=== PATIENT | female | born 1955 | race African-American/Black ===

== ENCOUNTER 2017-08-21 16:13 | Inpatient (IN) | payer MEDICARE, OTHER ==
[2017-08-21] MEDS ORDERED: hydrALAZINE 20 MG/ML VIAL ONE (18:21)
[2017-08-21 18:42] LABS: Bilirubin Negative (Negative); Blood, Urine Negative (Negative); Clarity CLEAR (Clear); Glucose, Urine (Dipstick) >=1000 mg/dL (Negative); Leukocyte Negative (Negative); Nitrite Negative (Negative); Protein, Urine (Dipstick) Trace mg/dL (Neg-Trace); Specific Gravity, Urine 1.026 (1.002-1.036); Urobilinogen 0.2 mg/dL (0.2-1.0)
[2017-08-21] MEDS ORDERED: Ondansetron HCl/PF 4 MG/2 ML Vial IVP PRN (19:03)
[2017-08-21] MEDS ORDERED: Labetalol HCl 100 MG/20 ML VIAL SLOW IVP PRN (19:03)
[2017-08-21] MEDS ORDERED: hydrALAZINE 20 MG/ML VIAL SLOW IVP PRN (19:03)
[2017-08-21 19:37] LABS: Hemoglobin A1c 15.2 % (4.0-6.0)
[2017-08-21] MEDS ORDERED: Dextrose 50% Abboject 50 ML SYRINGE SLOW IVP PRN (19:52)
[2017-08-21] MEDS ORDERED: Dextrose 5% in Water 1,000 ML IV PRN (19:52)
[2017-08-21 20:35] VITALS: BMI 26.6
[2017-08-21] MEDS: Sodium Chloride 0.9% 1,000 ML IV SCH (21:05)
[2017-08-21] MEDS: Atorvastatin Calcium 40 MG TAB PO SCH (21:06)
[2017-08-21] MEDS: Acetaminophen 325 MG TAB PO PRN (21:06)
[2017-08-21] MEDS: Famotidine 20 MG TAB PO SCH (21:07)
[2017-08-21] MEDS: Labetalol HCl 100 MG/20 ML VIAL SLOW IVP PRN (21:07)
[2017-08-22 05:41] LABS: Cardiac Risk 4.2 (Less than 4.5)
[2017-08-22] MEDS: Insulin Regular 300 UNITS/3 ML VIAL SC PRN ×4 (06:07→23:19)
[2017-08-22] MEDS: Sodium Chloride 0.9% 1,000 ML IV SCH ×2 (06:47→08:30)
[2017-08-22] MEDS: Famotidine 20 MG TAB PO SCH ×2 (08:30→21:57)
[2017-08-22] MEDS: Aspirin 81 mg Enteric Coated Tablet PO SCH (08:30)
[2017-08-22] MEDS: Enoxaparin Sodium 30 MG/0.3 ML SYRINGE SC SCH (08:31)
[2017-08-22] MEDS ORDERED: Prevnar 13-Val Conj/PF 0.5 ML SYRINGE IM ONE (09:00)
[2017-08-22] MEDS: hydrALAZINE 20 MG/ML VIAL SLOW IVP PRN (10:43)
[2017-08-22] MEDS: Acetaminophen 325 MG TAB PO PRN ×2 (10:44→23:19)
--- NOTE | 2017-08-22 11:25 | PDOC.PN ---
- Subjective Encounter Start Date: 08/22/17 Encounter Start Time: 11:22 Subjective: nsg notes rev, hellen ovn, no new c/o, feels a bit nauseated, still feels -: dizzy with any movement. - Objective Resuscitation Status: Resuscitation Status FULL:Full Resuscitation Vital Signs & Weight: Vital Signs (12 hours) Temp Pulse Resp BP Pulse Ox 08/22/17 10:43 81 08/22/17 07:54 98.8 F 81 12 184/102 H 98 08/22/17 03:33 98.3 F 81 16 155/74 H 98 08/21/17 23:31 98.4 F 88 16 183/94 H 98 Weight Weight 170 lb 9 oz I&O: 08/21/17 08/22/17 08/23/17 06:59 06:59 06:59 Intake Total 1140 240 Balance 1140 240 Additional Labs: Accuchecks 08/22/17 08/22/17 05:39 01:09 POC Glucose 245 H 315 H Phys Exam - Physical Examination Constitutional: NAD lying in hospital bed HEENT: sclera anicteric, oral pharynx no lesions slightly dry mm Respiratory: no wheezing, no rales, no rhonchi, clear to auscultation bilateral Cardiovascular: RRR, no rub [place] best heard RSB Gastrointestinal: soft, no distention, positive bowel sounds Musculoskeletal: no edema, pulses present Neurological: moves all 4 limbs Psychiatric: normal affect, A&O x 3 Dx/Plan - Plan * dizziness * concern for central etiology of vertigo * pending MRI * apprec neuro c/s * asa medication noncompliance with uncontrolled HTN, DM hypertension * in acute setting, prn hydralazine, labetalol, monitor closely * will need outpatient antihypertensive regimen - start HCTZ, RONA DM2, uncontrolled * A1c of 15.2 * will need insulin on outpatient basis * SSI for now, determine 24 hr need prior/ old lacunar stroke * discussed finding with patient * places her at increased risk for future risk * check ECHO 2/2 presence of murmur as well nausea * likely related to dizziness * symptomatic and supportive mgmt diet: cardiac, diabetic activity: PT dvt ppx Review of Systems - Medications/Allergies Allergies/Adverse Reactions: Allergies Allergy/AdvReac Type Severity Reaction Status Date / Time clindamycin Allergy Verified 08/21/17 20:41 Medications: Current Medications Acetaminophen (Tylenol) 650 mg PO Q4H PRN PRN Reason: Headache/Fever or Pain Last Admin: 08/22/17 10:44 Dose: 650 mg Aspirin (Ecotrin) 81 mg PO DAILY [facility] Last Admin: 08/22/17 08:30 Dose: 81 mg Atorvastatin Calcium (Lipitor) 40 mg PO HS [facility] Last Admin: 08/21/17 21:06 Dose: 40 mg Dextrose/Water (Dextrose 50%) 25 gm SLOW IVP PRN PRN PRN Reason: Hypoglycemia Enoxaparin Sodium (Lovenox) 30 mg SC 0900 [facility] Last Admin: 08/22/17 08:31 Dose: 30 mg Famotidine (Pepcid) 20 mg PO BID [facility] Last Admin: 08/22/17 08:30 Dose: 20 mg Glucagon (Glucagon) 1 mg IM PRN PRN PRN Reason: Hypoglycemia Hydralazine HCl (Apresoline) 10 mg SLOW IVP Q4H PRN PRN Reason: Hypertension Last Admin: 08/22/17 10:43 Dose: 10 mg Sodium Chloride (Normal Saline 0.9%) 1,000 mls @ 100 mls/hr IV .Q10H [facility] Last Admin: 08/22/17 08:30 Dose: 1,000 mls Dextrose/Water (D5w) 1,000 mls @ 0 mls/hr IV .Q0M PRN; As Directed PRN Reason: Hypoglycemia Insulin Human Regular (Humulin R) 0 units SC .MODERATE SLIDING SC PRN PRN Reason: Moderate Correctional Scale Last Admin: 08/22/17 06:07 Dose: 4 unit Labetalol HCl (Normodyne) 20 mg SLOW IVP Q1H PRN PRN Reason: Hypertension Last Admin: 08/21/17 21:07 Dose: 20 mg Ondansetron HCl (Zofran) 4 mg IVP Q6H PRN PRN Reason: Nausea/Vomiting Last Admin: 08/22/17 10:43 Dose: 4 mg
[2017-08-22 11:32] LABS: #Eosinphils 0.2 thou/uL (0.0-0.7); #Monocytes 0.4 thou/uL (0.11-0.59); #Neutrophils 3.9 thou/uL (1.40-6.50); %Basophils 0.7 % (0.0-1.0); %Eosinophils 2.9 % (0.0-10.0); %Lymphocytes 17.8 % (21.0-51.0); %Monocytes 7.2 % (0.0-10.0); %Neutrophils 71.4 % (42.0-75.0); Hemoglobin 13.6 g/dL (12.0-16.0); Mean Corpuscular HGB CONC 35.7 g/dL (32.0-36.0); Mean Corpuscular Hemoglobin 28.9 pg (27.0-31.0); Mean Platelet Volume 7.9 fL (7.4-10.4); Platelet Count 238 thou/uL (130-400); RBC Distribution Width 13.2 % (11.5-14.5); Red Blood Cell (RBC) Count 4.72 mill/uL (4.20-5.40); White Blood Cell (WBC) Count 5.5 thou/uL (4.8-10.8)
[2017-08-22 11:57] LABS: Anion Gap 10 mmol/L (10-20); BUN (Urea Nitrogen) 7 mg/dL (9.8-20.1); Calc. Creatinine Clearance 83 mL/min (70-130); Calcium 8.9 mg/dL (7.8-10.44); Carbon Dioxide 28 mmol/L (23-31); Chloride 101 mmol/L (98-107); Estimated GFR-MDRD 81; Glucose 333 mg/dL (80-115); Potassium 3.2 mmol/L (3.5-5.1); Sodium 136 mmol/L (136-145)
--- NOTE | 2017-08-22 12:39 | HP ---
PRIMARY CARE PHYSICIAN: The patient has no PCP. CHIEF COMPLAINT: Dizziness. HISTORY OF PRESENT ILLNESS: This is a 61-year-old female with a history of hypertension, medication noncompliance, diabetes, who presents with acute onset of dizziness and feeling that everything is spinning around her. The patient does not recall exactly what she was doing when this happened, but states that it happened 2 days ago and denies any prior similar episodes. She is accompanied today by her sister at bedside. Patient denies any recent illnesses. Denies any headaches. Endorses some blurred vision associated with the dizziness. REVIEW OF SYSTEMS: As per HPI. Constitutional: No recent weight changes, gain or loss. Denies any recent fevers or chills. HEENT: No headaches, some blurry vision as noted above, accompanied by the dizziness as described above. This is more of a sensation that the room is spinning around her and that it is worse when she moves, better when she stays still. Cardiovascular: Denies any chest pain or chest pressure, left-sided arm numbness or tingling. Respiratory: Denies any accompanying shortness of breath, dyspnea with exertion , cough or recent upper respiratory infection. Gastrointestinal: Denies any nausea, denies any vomiting, although endorses that she has lost her appetite over the last 2 days with this ongoing and reports a normal bowel movement yesterday, described as brown. Denies any issues with constipation or diarrhea over the last week. Genitourinary: Denies any issues with dysuria, changes in urinary frequency, quality or quantity. Musculoskeletal: Denies any new myalgias or arthralgias. PAST MEDICAL HISTORY: As per HPI, significant for, 1. Hypertension. 2. Diabetes. 3. Medication noncompliance. The patient states that she has not been taking her medications for several months, she is unable to give me a reason at this point in time. SURGERIES: None. HOME MEDICATIONS: None as noted above. No [id number], no supplements, no herbal regimens. ALLERGIES: CLINDAMYCIN, unknown reaction. FAMILY HISTORY: Significant for heart disease, hypertension, and diabetes. No known family history of stroke. SOCIAL HISTORY: The patient is accompanied by her sister with her today at bedside. The patient denies any alcohol, tobacco or illicit drug use. The patient has requested to be full code at this point in time. PHYSICAL EXAMINATION: GENERAL: The patient is awake, alert, oriented x3. HEENT: Normocephalic, atraumatic. Pupils are equal, reactive. Eyelids appear to have a baseline tremorous appearance, but she is able to open and close on command without difficulty. Equal ocular motions are intact, but she does appear to have lateral beating or saccadic like movements. CARDIOVASCULAR: S1, S2. No murmurs, rubs or gallops. EXTREMITIES: Pulses 2+ bilateral upper extremities, no pitting pedal edema. RESPIRATORY: Reasonable air movement. No conversational dyspnea. No wheezes, rales or rhonchi. ABDOMEN: Positive bowel sounds, soft, nontender to palpation. NEUROLOGIC: Moving all 4 extremities independently. LABORATORY DATA: WBC 5.6, hemoglobin 15.0, hematocrit 42.8, platelets 245. Sodium 137, potassium 3.8, chloride 97, BUN 9, creatinine 1.18, glucose 391, total bilirubin 0.5, AST 12, ALT 11, alkaline phosphatase 116, total protein 7.2 , albumin 4.2. Troponin 0.023. UA is significant for 500 of glucose and trace blood, otherwise bland. X-RAY FINDINGS: On 08/21/2017, brain CT, impression "no acute intracranial findings, tiny old lacunar infarctions in the left caudate nucleus and at the genu of the left internal capsule." ASSESSMENT AND PLAN: A 61-year-old female presenting with a chief complaint of dizziness. 1: Dizziness. More accurately described as perhaps a vertiginous type symptoms. New concern for the possibility of a central versus peripheral etiology. CT of the head in the ER has been grossly negative. Given the patient's prior history of old strokes which is not known to her, she certainly is at risk for a new central vertigo. Symptomatic management, physical therapy consultation.Obtain MRI, consult neurology. 2. Hypertension, poorly controlled. Close monitoring. P.r.n. hydralazine and labetalol with initiation of a new antihypertensive regimen at the time of discharge. 3. Uncontrolled diabetes. We will initiate sliding scale insulin. Unclear what the patient's baseline is, check a hemoglobin A1c. 4. Medication noncompliance. Discussed with the patient and she is willing to follow up after discharge from this facility. Thank you for asking me to care for the patient and admit the patient to the stroke unit under observation status. ELIZABETH
--- NOTE | 2017-08-22 13:35 | ULT ---
CAROTID DOPPLER: DATE: 08/22/17. PROVIDED CLINICAL HISTORY: Evidence for stroke. FINDINGS: There is no evidence for a hemodynamically significant internal carotid artery stenosis by peak systo lic velocity or ratio criteria. Antegrade flow is seen in the vertebral arteries. IMPRESSION: No sonographic evidence for a hemodynamically significant internal carotid artery stenosis. POS: VALENTE
--- NOTE | 2017-08-22 14:53 | CON ---
DATE OF CONSULTATION: 08/22/2017 CONSULTING PHYSICIAN: Hospitalist Service. IMPRESSION: 1. 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 2. Diabetes. 3. Hypertension. PLAN: 1. Aspirin daily. 2. Carotid ultrasound. 3. Echocardiogram. 4. MRI of the brain. HISTORY OF PRESENT ILLNESS: Ms. Weber is a 61-year-old black female, who has known history of hyper tension and diabetes. She presents with complaints of vision loss that started on Thursday. She di d not seek medical attention right away. She reports that she has more difficulty seeing to the left than compared to the right. She also has some associated dizziness and nausea. She has not noticed any lateralized weakness or numbness of the extremities. She had difficulty walking secondary to th dizziness. She came into the emergency room yesterday and we workup thus far has been some blood w orks, which showed some hyperglycemia. She is also noted to be hypertensive on exam. She denies a h istory of prior stroke. PAST MEDICAL HISTORY: As listed above. ALLERGIES: CLINDAMYCIN. SOCIAL HISTORY: No tobacco or alcohol use reported. FAMILY HISTORY: Noncontributory. REVIEW OF SYSTEMS: Negative for headache, chest pain, or shortness of breath. PHYSICAL EXAMINATION: GENERAL: She is a well-nourished, middle-aged woman in no distress. VITAL SIGNS: Blood pressure 184/102, pulse 81, respirations 12, and temperature 98.8. HEENT: Pupils are equal in size. Conjunctivae clear. Oropharynx clear. Cranium, normocephalic and atraumatic. NECK: Supple. EXTREMITIES: No cyanosis, clubbing, or edema. NEUROLOGIC: She was alert and cooperative. Her speech was fluent and clear. Cranial nerve exam sergio wed what appeared to be a left homonomous hemianopsia. Eye movements were impaired as far as the rig ht eye could not nasally deviate. There is some down beating nystagmus present. MOTOR: Exam showed good strength bilaterally, but there was a fix on arm roll testing on the right. Sensation was subjectively equal. Plantar response was upgoing on the right and equivocal on the le ft. Gait was not tested. SUMMARY: Given the combination of vision loss and ophthalmoplegia suspect that she has had a basilar ischemic event can proceed with her stroke workup and hopefully her symptoms will cherie somewhat wit h a bit of time.
--- NOTE | 2017-08-22 15:22 | MRI ---
MRI BRAIN NONCONTRAST: DATE: 08/22/17. HISTORY: A 61-year-old female with nausea and left-sided weakness. TIA. FINDINGS: The ventricles are normal in size and configuration. There is no midline shift or any other mass eff ect, recent intraaxial hemorrhage, or extraaxial fluid collection. There is a moderate degree of T2- hyperintensities in the cerebral white matter consistent with chronic ischemic white matter changes d ue to microvascular atherosclerosis. At the upper aspect of the natalia, near the pontomesencephalic ju nction, there are 2 small patchy foci of subtle, mild hyperintensity on T2WI and FLAIR, which have re stricted diffusion. The smaller one is located centrally at midline, a few millimeters in size. The other one is right posterior paracentral, measuring approximately 0.8 x 0.2 cm. There is a very small focus of T2 hyperintensity at the left caudate nucleus, with mild hemosiderin s tain. There is another small focus of T2-hyperintensity (without hemosiderin stain) and at the adjace nt anterior superior border of the thalamus. IMPRESSION: 1. Two tiny acute or subacute lacunar infarctions in the brainstem, more specifically at the upper p ons. 2. Small old lacunar infarction at left anterior medial thalamus. 3. Tiny old lacunar infarction with previous hemorrhagic conversion, versus old primary hemorrhage, at the left caudate nucleus. 4. Moderate chronic ischemic white matter changes. 5. No acute hemorrhage or mass effect. jnR POS: VALENTE
--- NOTE | 2017-08-22 15:34 | MRI ---
MAGNETIC RESONANCE ANGIOGRAM OF HEAD NONCONTRAST: (MRA) DATE: 08/22/17. HISTORY: A 61-year-old female with severe nausea and left-sided weakness. Rule out CVA. TECHNIQUE: Three-D [id number] MRA acquired in multiple axial slabs through the [place]. Source ivania ges and 3D MIP reconstructions evaluated. FINDINGS: There are several foci of apparent short segment stenoses involving the proximal aspects of the bilat eral posterior cerebral arteries and superior cerebellar arteries. The basilar artery and the intracranial bilateral vertebral arteries demonstrate no high-grade acquir ed stenosis. The A1 segment of the left anterior cerebral artery is diminutive. No high-grade short -segment acquired stenosis is identified in the anterior circulation. There is an anterior communica ting artery. No aneurysm greater than 3 mm is identified. IMPRESSION: 1. 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 2. No other high-grade focal acquired stenosis identified. POS: VALENTE
[2017-08-22] MEDS ORDERED: Potassium Chloride 20 MEQ TAB PO SCH (21:00)
[2017-08-22] MEDS: Atorvastatin Calcium 40 MG TAB PO SCH (21:58)
[2017-08-22] MEDS: Labetalol HCl 100 MG/20 ML VIAL SLOW IVP PRN (23:20)
[2017-08-23] MEDS ORDERED: Ondansetron ODT 4 MG TAB PO PRN (02:18)
[2017-08-23] MEDS: Insulin Regular 300 UNITS/3 ML VIAL SC PRN ×4 (06:38→21:07)
[2017-08-23] MEDS: Aspirin 81 mg Enteric Coated Tablet PO SCH (10:01)
[2017-08-23] MEDS: Enoxaparin Sodium 30 MG/0.3 ML SYRINGE SC SCH (10:01)
[2017-08-23] MEDS: Famotidine 20 MG TAB PO SCH ×2 (10:01→21:07)
[2017-08-23] MEDS: Lisinopril 20 MG TAB PO SCH (10:02)
--- NOTE | 2017-08-23 10:32 | PDOC.PN ---
- Subjective Encounter Start Date: 08/23/17 Encounter Start Time: 10:31 cc: dizziness sub: Pt still c/o dizziness - Objective Resuscitation Status: Resuscitation Status FULL:Full Resuscitation Vital Signs & Weight: Vital Signs (12 hours) Temp Pulse Resp BP BP BP BP 08/23/17 10:02 161/78 H 08/23/17 08:00 98.7 F 86 18 161/78 H 08/23/17 04:00 98.3 F 93 16 138/79 08/22/17 23:20 93 08/22/17 23:13 98.8 F 93 16 201/107 H 203/111 H 204/101 H Pulse Ox 08/23/17 10:02 08/23/17 08:00 98 08/23/17 04:00 98 08/22/17 23:20 08/22/17 23:13 97 Weight Weight 170 lb 9 oz I&O: 08/22/17 08/23/17 08/24/17 06:59 06:59 06:59 Intake Total 1140 2535 240 Balance 1140 2535 240 Result Diagrams: 08/22/17 11:24 08/22/17 11:24 Additional Labs: Accuchecks 08/23/17 08/22/17 08/22/17 06:03 20:39 16:10 POC Glucose 262 H 272 H 227 H 08/22/17 11:02 POC Glucose 351 H Dx/Plan - Plan Physical Examination Constitutional: NAD, lying on bed HEENT: sclera anicteric, oral pharynx no lesions slightly dry mm Respiratory: no wheezing, no rales, no rhonchi, clear to auscultation bilateral Cardiovascular: RRR, no rub [place] best heard RSB Gastrointestinal: soft, no distention, positive bowel sounds Musculoskeletal: no edema, pulses present Neurological: moves all 4 limbs, cn intact, follows commands Psychiatric: normal affect, A&O x 3 Dx/Plan - Plan * dizziness + ACute /subacute CVA * mri positive for stroke * apprec neuro c/s * asa medication noncompliance with uncontrolled HTN, DM hypertension * in acute setting, prn hydralazine, labetalol, monitor closely * will need outpatient antihypertensive regimen - start HCTZ, RONA DM2, uncontrolled * A1c of 15.2 * will need insulin on outpatient basis * SSI for now, determine 24 hr need prior/ old lacunar stroke * discussed finding with patient * places her at increased risk for future risk * check ECHO 2/2 presence of murmur as well nausea * likely related to dizziness * symptomatic and supportive mgmt diet: cardiac, diabetic activity: PT dvt ppx Dispo: might need rehab. will get PT/OT/ST eval
[2017-08-23] MEDS: Atorvastatin Calcium 40 MG TAB PO SCH (21:07)
[2017-08-24] MEDS: Insulin Regular 300 UNITS/3 ML VIAL SC PRN ×3 (06:09→17:19)
[2017-08-24] MEDS: Enoxaparin Sodium 30 MG/0.3 ML SYRINGE SC SCH (08:25)
[2017-08-24] MEDS: Aspirin 81 mg Enteric Coated Tablet PO SCH (08:26)
[2017-08-24] MEDS: Famotidine 20 MG TAB PO SCH ×2 (08:26→20:57)
[2017-08-24] MEDS: Lisinopril 20 MG TAB PO SCH (08:26)
[2017-08-24] MEDS: hydrALAZINE 20 MG/ML VIAL SLOW IVP PRN (12:05)
[2017-08-24 14:51] LABS: Albumin 3.7 g/dL (3.4-4.8); Anion Gap 14 mmol/L (10-20); BUN (Urea Nitrogen) 12 mg/dL (9.8-20.1); BUN/Creatinine Ratio 11.88; Calc. Creatinine Clearance 71 mL/min (70-130); Calcium 9.4 mg/dL (7.8-10.44); Carbon Dioxide 23 mmol/L (23-31); Chloride 103 mmol/L (98-107); Estimated GFR-MDRD 67; Glucose 230 mg/dL (80-115); Phosphorus 3.2 mg/dL (2.3-4.7); Potassium 3.4 mmol/L (3.5-5.1); Sodium 137 mmol/L (136-145)
[2017-08-24] MEDS ORDERED: Insulin Regular 300 UNITS/3 ML VIAL SC PRN (17:05)
[2017-08-24] MEDS: Atorvastatin Calcium 40 MG TAB PO SCH (20:57)
[2017-08-24] MEDS ORDERED: Insulin Detemir 100 UNITS/ML 15 UNITS in Pre-Filled Syringe 1 EACH SC SCH (21:00)
--- NOTE | 2017-08-24 22:15 | PDOC.PN ---
- Subjective Encounter Start Date: 08/24/17 Encounter Start Time: 17:00 Patient seen and examined for Acute CVA/Uncontrolled DM2. No new complaints. No overnight events. No new focal deficits. - Objective Resuscitation Status: Resuscitation Status FULL:Full Resuscitation MAR Reviewed: Yes Vital Signs & Weight: Vital Signs (12 hours) Temp Pulse Resp BP Pulse Ox 08/24/17 19:41 98.6 F 85 14 177/90 H 96 08/24/17 17:00 172/91 H 08/24/17 15:46 98.6 F 94 16 185/100 H 95 08/24/17 12:05 82 08/24/17 11:52 98.4 F 82 16 180/93 H 98 Weight Weight 170 lb 9 oz I&O: 08/23/17 08/24/17 08/25/17 06:59 06:59 06:59 Intake Total 2535 1490 1290 Balance 2535 1490 1290 Result Diagrams: 08/22/17 11:24 08/25/17 05:31 Additional Labs: Accuchecks 08/24/17 08/24/17 08/24/17 20:51 16:48 10:40 POC Glucose 227 H 368 H 285 H 08/24/17 08/23/17 06:09 21:08 POC Glucose 171 H 222 H EKG Reviewed by me: Yes (Tele SR) Phys Exam - Physical Examination Constitutional: NAD Respiratory: no wheezing, no rhonchi Cardiovascular: RRR, no rub Gastrointestinal: soft, non-tender, positive bowel sounds Musculoskeletal: no edema Neuro - no new focal deficits. Psychiatric: A&O x 3 Dx/Plan - Plan DVT proph w/lovenox, DVT proph w/SCDs IMPRESSION: 1. Acute CVA 2. DM2 - uncontrolled 3. Med noncompliace 4. Hypokalemia 5. Dyslipidemia PLAN: * Replace Potassium * Cont ASA/Statins * Add Levemir HS * Cont sliding scale * Check Potassium in AM Review of Systems - Review of Systems Respiratory: negative: Cough, Dry, Shortness of Breath, Hemoptysis, SOB with Excertion, Pleuritic Pain, Sputum, Wheezing Cardiovascular: negative: chest pain, palpitations, orthopnea, paroxysmal nocturnal dyspnea, edema, light headedness, other - Medications/Allergies Allergies/Adverse Reactions: Allergies Allergy/AdvReac Type Severity Reaction Status Date / Time clindamycin Allergy Verified 08/21/17 20:41 Medications: Current Medications Acetaminophen (Tylenol) 650 mg PO Q4H PRN PRN Reason: Headache/Fever or Pain Last Admin: 08/22/17 23:19 Dose: 650 mg Aspirin (Ecotrin) 81 mg PO DAILY [facility] Last Admin: 08/24/17 08:26 Dose: 81 mg Atorvastatin Calcium (Lipitor) 40 mg PO HS [facility] Last Admin: 08/24/17 20:57 Dose: 40 mg Dextrose/Water (Dextrose 50%) 25 gm SLOW IVP PRN PRN PRN Reason: Hypoglycemia Enoxaparin Sodium (Lovenox) 30 mg SC 0900 [facility] Last Admin: 08/24/17 08:25 Dose: 30 mg Famotidine (Pepcid) 20 mg PO BID [facility] Last Admin: 08/24/17 20:57 Dose: 20 mg Glucagon (Glucagon) 1 mg IM PRN PRN PRN Reason: Hypoglycemia Hydralazine HCl (Apresoline) 10 mg SLOW IVP Q4H PRN PRN Reason: Hypertension Last Admin: 08/24/17 12:05 Dose: 10 mg Dextrose/Water (D5w) 1,000 mls @ 0 mls/hr IV .Q0M PRN; As Directed PRN Reason: Hypoglycemia Insulin Detemir 15 units/ (Miscellaneous Medication) 0.15 mls @ 0 mls/hr SC [facility] Last Admin: 08/24/17 20:58 Dose: 0.15 mls Insulin Human Regular (Humulin R) 0 units SC .MODERATE SLIDING SC PRN PRN Reason: Moderate Correctional Scale Last Admin: 08/24/17 17:19 Dose: 10 unit Insulin Human Regular (Humulin R) 0 units SC .BEDTIME SLIDING SC PRN PRN Reason: Bedtime Correctional Scale Labetalol HCl (Normodyne) 20 mg SLOW IVP Q1H PRN PRN Reason: Hypertension Last Admin: 08/22/17 23:20 Dose: 20 mg Lisinopril (Zestril) 20 mg PO DAILY [facility] Last Admin: 08/24/17 08:26 Dose: 20 mg Ondansetron HCl (Zofran Odt) 4 mg PO Q6H PRN PRN Reason: Nausea/Vomiting Last Admin: 08/23/17 02:28 Dose: 4 mg
[2017-08-25 06:37] LABS: Potassium 3.6 mmol/L (3.5-5.1)
[2017-08-25] MEDS: Famotidine 20 MG TAB PO SCH ×2 (09:16→21:18)
[2017-08-25] MEDS: Lisinopril 20 MG TAB PO SCH (09:16)
[2017-08-25] MEDS: Enoxaparin Sodium 30 MG/0.3 ML SYRINGE SC SCH (09:17)
[2017-08-25] MEDS: Aspirin 325 mg Enteric Coated Tablet PO SCH (09:17)
[2017-08-25] MEDS: Insulin Regular 300 UNITS/3 ML VIAL SC PRN ×2 (11:58→17:07)
[2017-08-25] MEDS ORDERED: Labetalol HCl 100 MG/20 ML VIAL SLOW IVP PRN (12:58)
[2017-08-25] MEDS ORDERED: Amlodipine 5 MG TAB PO SCH (13:00)
[2017-08-25] MEDS ORDERED: Insulin Detemir 100 UNITS/ML 15 UNITS in Pre-Filled Syringe SC SCH (13:15)
[2017-08-25] MEDS ORDERED: cloNIDine 0.1 MG TAB PO PRN (13:16)
--- NOTE | 2017-08-25 16:55 | PDOC.PN ---
- Subjective Encounter Start Date: 08/25/17 Encounter Start Time: 13:00 Patient seen and examined for Acute CVA. No new complaints. No overnight events. No new focal findings - Objective Resuscitation Status: Resuscitation Status FULL:Full Resuscitation MAR Reviewed: Yes Vital Signs & Weight: Vital Signs (12 hours) Temp Pulse Pulse Pulse Resp BP BP 08/25/17 15:57 98.3 F 84 16 08/25/17 13:31 83 08/25/17 11:59 98.5 F 83 18 08/25/17 09:16 184/102 H 08/25/17 08:55 92 89 193/103 H 08/25/17 08:00 98.6 F 86 16 BP BP Pulse Ox 08/25/17 15:57 169/100 H 97 08/25/17 13:31 08/25/17 11:59 176/106 H 97 08/25/17 09:16 08/25/17 08:55 161/83 H 08/25/17 08:00 186/103 H 97 Weight Weight 170 lb 9 oz I&O: 08/24/17 08/25/17 08/26/17 06:59 06:59 06:59 Intake Total 1490 1540 960 Balance 1490 1540 960 Result Diagrams: 08/22/17 11:24 08/25/17 05:31 Additional Labs: Accuchecks 08/25/17 08/25/17 08/24/17 11:07 05:43 20:51 POC Glucose 243 H 135 H 227 H 08/24/17 16:48 POC Glucose 368 H Phys Exam - Physical Examination Constitutional: NAD Respiratory: no wheezing, no rhonchi Cardiovascular: RRR, no rub Gastrointestinal: soft, non-tender, positive bowel sounds Musculoskeletal: edema present Neurological: moves all 4 limbs No new focal findings Dx/Plan - Plan DVT proph w/SCDs IMPRESSION: 1. Acute CVA - on ASA 2. DM2 - uncontrolled 3. HTN - uncontrolled 4. Hypokalemia 5. Dyslipidemia/Med noncompliace PLAN: * Change Levemir to 20 units QAM * One dose 15 units Levemir * Add Amlodipine/Coreg * Cont ASA/Statins * Cont sliding scale * Await placement Review of Systems - Review of Systems Respiratory: negative: Cough, Dry, Shortness of Breath, Hemoptysis, SOB with Excertion, Pleuritic Pain, Sputum, Wheezing Cardiovascular: negative: chest pain, palpitations, orthopnea, paroxysmal nocturnal dyspnea, edema, light headedness, other - Medications/Allergies Allergies/Adverse Reactions: Allergies Allergy/AdvReac Type Severity Reaction Status Date / Time clindamycin Allergy Verified 08/21/17 20:41 Medications: Current Medications Acetaminophen (Tylenol) 650 mg PO Q4H PRN PRN Reason: Headache/Fever or Pain Last Admin: 08/22/17 23:19 Dose: 650 mg Amlodipine Besylate (Norvasc) 5 mg PO DAILY [facility] Aspirin (Ecotrin) 325 mg PO DAILY [facility] Last Admin: 08/25/17 09:17 Dose: 325 mg Atorvastatin Calcium (Lipitor) 40 mg PO [facility] Last Admin: 08/24/17 20:57 Dose: 40 mg Carvedilol (Coreg) 6.25 mg PO BID[facility] Clonidine (Catapres) 0.1 mg PO Q4H PRN PRN Reason: Systolic BP > 180 Dextrose/Water (Dextrose 50%) 25 gm SLOW IVP PRN PRN PRN Reason: Hypoglycemia Famotidine (Pepcid) 20 mg PO BID [facility] Last Admin: 08/25/17 09:16 Dose: 20 mg Glucagon (Glucagon) 1 mg IM PRN PRN PRN Reason: Hypoglycemia Hydralazine HCl (Apresoline) 10 mg SLOW IVP Q4H PRN PRN Reason: Hypertension Last Admin: 08/24/17 12:05 Dose: 10 mg Dextrose/Water (D5w) 1,000 mls @ 0 mls/hr IV .Q0M PRN; As Directed PRN Reason: Hypoglycemia Insulin Detemir 20 units/ (Miscellaneous Medication) 0.2 mls @ 0 mls/hr SC QAM [facility] Insulin Human Regular (Humulin R) 0 units SC .MODERATE SLIDING SC PRN PRN Reason: Moderate Correctional Scale Last Admin: 08/25/17 11:58 Dose: 4 unit Insulin Human Regular (Humulin R) 0 units SC .BEDTIME SLIDING SC PRN PRN Reason: Bedtime Correctional Scale Labetalol HCl (Normodyne) 20 mg SLOW IVP Q1H PRN PRN Reason: Hypertension Last Admin: 08/22/17 23:20 Dose: 20 mg Labetalol HCl (Normodyne) 10 mg SLOW IVP Q4H PRN PRN Reason: Systolic BP > 180 Lisinopril (Zestril) 20 mg PO DAILY [facility] Last Admin: 08/25/17 09:16 Dose: 20 mg Ondansetron HCl (Zofran Odt) 4 mg PO Q6H PRN PRN Reason: Nausea/Vomiting Last Admin: 08/23/17 02:28 Dose: 4 mg
[2017-08-25] MEDS: Carvedilol 6.25 MG TAB PO SCH (17:08)
[2017-08-25] MEDS: Atorvastatin Calcium 40 MG TAB PO SCH (21:18)
[2017-08-26] MEDS: Insulin Regular 300 UNITS/3 ML VIAL SC PRN ×3 (06:08→17:22)
[2017-08-26 06:59] LABS: Albumin 3.2 g/dL (3.4-4.8); Anion Gap 8 mmol/L (10-20); BUN (Urea Nitrogen) 13 mg/dL (9.8-20.1); BUN/Creatinine Ratio 14.77; Calc. Creatinine Clearance 81 mL/min (70-130); Calcium 8.8 mg/dL (7.8-10.44); Carbon Dioxide 30 mmol/L (23-31); Chloride 104 mmol/L (98-107); Estimated GFR-MDRD 79; Glucose 180 mg/dL (80-115); Phosphorus 3.4 mg/dL (2.3-4.7); Potassium 3.4 mmol/L (3.5-5.1); Sodium 139 mmol/L (136-145)
[2017-08-26] MEDS: Aspirin 325 mg Enteric Coated Tablet PO SCH (08:20)
[2017-08-26] MEDS: Amlodipine 5 MG TAB PO SCH (08:21)
[2017-08-26] MEDS: Carvedilol 6.25 MG TAB PO SCH ×2 (08:21→17:21)
[2017-08-26] MEDS: Insulin Detemir 100 UNITS/ML 20 UNITS in Pre-Filled Syringe SC SCH (08:21)
[2017-08-26] MEDS: Famotidine 20 MG TAB PO SCH ×2 (08:21→20:00)
[2017-08-26] MEDS: Lisinopril 20 MG TAB PO SCH (08:21)
[2017-08-26] MEDS: Potassium Chloride 20 MEQ TAB PO SCH (17:21)
[2017-08-26] MEDS: Atorvastatin Calcium 40 MG TAB PO SCH (20:00)
--- NOTE | 2017-08-26 20:30 | PDOC.PN ---
- Subjective Encounter Start Date: 08/26/17 Encounter Start Time: 14:00 Patient seen and examined for Acute CVA. No new complaints. No overnight events - Objective Resuscitation Status: Resuscitation Status FULL:Full Resuscitation MAR Reviewed: Yes Vital Signs & Weight: Vital Signs (12 hours) Temp Pulse Pulse Pulse Resp BP BP 08/26/17 19:14 98.4 F 72 16 08/26/17 17:21 142/83 H 08/26/17 15:32 98.2 F 74 16 08/26/17 11:53 98.5 F 78 16 08/26/17 08:52 81 75 134/97 H BP BP Pulse Ox 08/26/17 19:14 139/75 98 08/26/17 17:21 08/26/17 15:32 142/83 H 97 08/26/17 11:53 136/80 98 08/26/17 08:52 134/81 Weight Weight 170 lb 9 oz I&O: 08/25/17 08/26/17 08/27/17 06:59 06:59 06:59 Intake Total 1540 1686 1470 Balance 1540 1686 1470 Result Diagrams: 08/22/17 11:24 08/26/17 06:02 Additional Labs: Accuchecks 08/26/17 08/26/17 08/26/17 19:56 17:11 10:57 POC Glucose 170 H 268 H 154 H 08/26/17 08/26/17 08/25/17 06:03 02:11 21:19 POC Glucose 176 H 246 H 156 H EKG Reviewed by me: Yes (Tele SR) Phys Exam - Physical Examination Constitutional: NAD Respiratory: no wheezing, no rales, no rhonchi Cardiovascular: RRR, no rub Gastrointestinal: soft, non-tender, positive bowel sounds Musculoskeletal: no edema Neurological: moves all 4 limbs no new focal deficits. Dx/Plan - Plan DVT proph w/SCDs IMPRESSION: 1. Acute CVA 2. DM2 3. HTN 4. Hypokalemia 5. Dyslipidemia/Med noncompliace PLAN: * Cont ASA * Cont 20 units Levemir with sliding scale * Cont Amlodipine/Coreg * Cont Statins * Cont sliding scale * Await placement - SNF * Replace Potassium * AM labs Review of Systems - Review of Systems Respiratory: negative: Cough, Dry, Shortness of Breath, Hemoptysis, SOB with Excertion, Pleuritic Pain, Sputum, Wheezing Cardiovascular: negative: chest pain, palpitations, orthopnea, paroxysmal nocturnal dyspnea, edema, light headedness, other - Medications/Allergies Allergies/Adverse Reactions: Allergies Allergy/AdvReac Type Severity Reaction Status Date / Time clindamycin Allergy Verified 08/21/17 20:41 Medications: Current Medications Acetaminophen (Tylenol) 650 mg PO Q4H PRN PRN Reason: Headache/Fever or Pain Last Admin: 08/22/17 23:19 Dose: 650 mg Amlodipine Besylate (Norvasc) 5 mg PO DAILY [facility] Last Admin: 08/26/17 08:21 Dose: 5 mg Aspirin (Ecotrin) 325 mg PO DAILY [facility] Last Admin: 08/26/17 08:20 Dose: 325 mg Atorvastatin Calcium (Lipitor) 40 mg PO [facility] Last Admin: 08/26/17 20:00 Dose: 40 mg Carvedilol (Coreg) 6.25 mg PO BID-[facility] Last Admin: 08/26/17 17:21 Dose: 6.25 mg Dextrose/Water (Dextrose 50%) 25 gm SLOW IVP PRN PRN PRN Reason: Hypoglycemia Famotidine (Pepcid) 20 mg PO BID [facility] Last Admin: 08/26/17 20:00 Dose: 20 mg Glucagon (Glucagon) 1 mg IM PRN PRN PRN Reason: Hypoglycemia Hydralazine HCl (Apresoline) 10 mg SLOW IVP Q4H PRN PRN Reason: Hypertension Last Admin: 08/24/17 12:05 Dose: 10 mg Dextrose/Water (D5w) 1,000 mls @ 0 mls/hr IV .Q0M PRN; As Directed PRN Reason: Hypoglycemia Insulin Detemir 20 units/ (Miscellaneous Medication) 0.2 mls @ 0 mls/hr [facility] [place] [place] Last Admin: 08/26/17 08:21 Dose: 0.2 mls Insulin Human Regular (Humulin R) 0 units SC .MODERATE SLIDING SC PRN PRN Reason: Moderate Correctional Scale Last Admin: 08/26/17 17:22 Dose: 6 unit Insulin Human Regular (Humulin R) 0 units SC .BEDTIME SLIDING SC PRN PRN Reason: Bedtime Correctional Scale Last Admin: 08/26/17 02:15 Dose: 2 unit Labetalol HCl (Normodyne) 20 mg SLOW IVP Q1H PRN PRN Reason: Hypertension Last Admin: 08/22/17 23:20 Dose: 20 mg Labetalol HCl (Normodyne) 10 mg SLOW IVP Q4H PRN PRN Reason: Systolic BP > 180 Lisinopril (Zestril) 20 mg PO DAILY [facility] Last Admin: 08/26/17 08:21 Dose: 20 mg Ondansetron HCl (Zofran Odt) 4 mg PO Q6H PRN PRN Reason: Nausea/Vomiting Last Admin: 08/23/17 02:28 Dose: 4 mg Potassium Chloride (K-Dur) 20 meq PO BID-[facility] Last Admin: 08/26/17 17:21 Dose: 20 meq
[2017-08-27 05:19] LABS: Hemoglobin 12.7 g/dL (12.0-16.0); Platelet Count 253 thou/uL (130-400)
[2017-08-27 05:25] LABS: Potassium 3.7 mmol/L (3.5-5.1)
[2017-08-27] MEDS: Potassium Chloride 20 MEQ TAB PO SCH ×2 (08:27→16:45)
[2017-08-27] MEDS: Lisinopril 20 MG TAB PO SCH (08:27)
[2017-08-27] MEDS: Famotidine 20 MG TAB PO SCH (08:28)
[2017-08-27] MEDS: Aspirin 325 mg Enteric Coated Tablet PO SCH (08:28)
[2017-08-27] MEDS: Carvedilol 6.25 MG TAB PO SCH ×2 (08:28→16:45)
[2017-08-27] MEDS: Amlodipine 5 MG TAB PO SCH (08:28)
[2017-08-27] MEDS: Insulin Detemir 100 UNITS/ML 20 UNITS in Pre-Filled Syringe SC SCH (10:00)
--- NOTE | 2017-08-27 15:14 | PDOC.PN ---
- Subjective Encounter Start Date: 08/27/17 Encounter Start Time: 13:30 Patient seen and examined for acute CVA. No new complaints. No overnight events. No new complaints. - Objective Resuscitation Status: Resuscitation Status FULL:Full Resuscitation MAR Reviewed: Yes Vital Signs & Weight: Vital Signs (12 hours) Temp Pulse Pulse Pulse Resp BP BP 08/27/17 11:15 98.6 F 79 18 08/27/17 09:35 82 85 183/95 H 08/27/17 08:28 85 150/51 H 08/27/17 08:27 150/51 H 08/27/17 08:00 98.8 F 85 16 08/27/17 07:20 98.8 F 85 16 08/27/17 04:00 98.8 F 79 16 BP BP Pulse Ox 08/27/17 11:15 143/80 H 97 08/27/17 09:35 167/98 H 08/27/17 08:28 08/27/17 08:27 08/27/17 08:00 08/27/17 07:20 150/81 H 95 08/27/17 04:00 173/87 H 97 Weight Weight 170 lb 9 oz I&O: 08/26/17 08/27/17 08/28/17 06:59 06:59 06:59 Intake Total 1686 1820 Balance 1686 1820 Result Diagrams: 08/27/17 05:08 08/27/17 05:08 Additional Labs: Accuchecks 08/27/17 08/27/17 08/26/17 10:32 04:48 19:56 POC Glucose 265 H 158 H 170 H 08/26/17 17:11 POC Glucose 268 H EKG Reviewed by me: Yes (tele SR) Phys Exam - Physical Examination Constitutional: NAD Respiratory: no wheezing, no rhonchi Cardiovascular: RRR, no rub Gastrointestinal: soft, non-tender, positive bowel sounds Musculoskeletal: no edema Dx/Plan - Plan DVT proph w/SCDs IMPRESSION: 1. Acute CVA - started on ASA 2. DM2 - on Levemir/sliding scale 3. HTN 4. Hypokalemia - replaced 5. Dyslipidemia/Med noncompliace PLAN: * Cont ASA/Levemir with sliding scale * Cont Amlodipine/Coreg/Statins * Cont current meds as below * Await placement - SNF * DC Potassium after PM dose Review of Systems - Review of Systems Respiratory: negative: Cough, Dry, Shortness of Breath, Hemoptysis, SOB with Excertion, Pleuritic Pain, Sputum, Wheezing Cardiovascular: negative: chest pain, palpitations, orthopnea, paroxysmal nocturnal dyspnea, edema, light headedness, other Gastrointestinal: negative: Nausea, Vomiting, Abdominal Pain, Diarrhea, Constipation, Melena, Hematochezia, Other - Medications/Allergies Allergies/Adverse Reactions: Allergies Allergy/AdvReac Type Severity Reaction Status Date / Time clindamycin Allergy Verified 08/21/17 20:41 Medications: Current Medications Acetaminophen (Tylenol) 650 mg PO Q4H PRN PRN Reason: Headache/Fever or Pain Last Admin: 08/22/17 23:19 Dose: 650 mg Amlodipine Besylate (Norvasc) 5 mg PO DAILY [facility] Last Admin: 08/27/17 08:28 Dose: 5 mg Aspirin (Ecotrin) 325 mg PO DAILY [facility] Last Admin: 08/27/17 08:28 Dose: 325 mg Atorvastatin Calcium (Lipitor) 40 mg PO [facility] Last Admin: 08/26/17 20:00 Dose: 40 mg Carvedilol (Coreg) 6.25 mg PO BID-[facility] Last Admin: 08/27/17 08:28 Dose: 6.25 mg Dextrose/Water (Dextrose 50%) 25 gm SLOW IVP PRN PRN PRN Reason: Hypoglycemia Famotidine (Pepcid) 20 mg PO BID [facility] Last Admin: 08/27/17 08:28 Dose: 20 mg Glucagon (Glucagon) 1 mg IM PRN PRN PRN Reason: Hypoglycemia Hydralazine HCl (Apresoline) 10 mg SLOW IVP Q4H PRN PRN Reason: Hypertension Last Admin: 08/24/17 12:05 Dose: 10 mg Dextrose/Water (D5w) 1,000 mls @ 0 mls/hr IV .Q0M PRN; As Directed PRN Reason: Hypoglycemia Insulin Detemir 20 units/ (Miscellaneous Medication) 0.2 mls @ 0 mls/hr [facility] [place] Last Admin: 08/27/17 10:00 Dose: 0.2 mls Insulin Human Regular (Humulin R) 0 units SC .MODERATE SLIDING SC PRN PRN Reason: Moderate Correctional Scale Last Admin: 08/26/17 17:22 Dose: 6 unit Insulin Human Regular (Humulin R) 0 units SC .BEDTIME SLIDING SC PRN PRN Reason: Bedtime Correctional Scale Last Admin: 08/26/17 02:15 Dose: 2 unit Labetalol HCl (Normodyne) 20 mg SLOW IVP Q1H PRN PRN Reason: Hypertension Last Admin: 08/22/17 23:20 Dose: 20 mg Labetalol HCl (Normodyne) 10 mg SLOW IVP Q4H PRN PRN Reason: Systolic BP > 180 Lisinopril (Zestril) 20 mg PO DAILY [facility] Last Admin: 08/27/17 08:27 Dose: 20 mg Ondansetron HCl (Zofran Odt) 4 mg PO Q6H PRN PRN Reason: Nausea/Vomiting Last Admin: 08/23/17 02:28 Dose: 4 mg Potassium Chloride (K-Dur) 20 meq PO BID-[facility] Stop: 08/27/17 23:59 Last Admin: 08/27/17 08:27 Dose: 20 meq
[2017-08-27 15:46] VITALS: BP 156/87; TEMP 98.7
[2017-08-27] MEDS: Insulin Regular 300 UNITS/3 ML VIAL SC PRN (16:45)
--- NOTE | 2017-08-28 08:21 | DIS ---
DISCHARGE DISPOSITION: To [facility] facility [facility]. FOLLOWUP: With [facility] post-discharge. The patient was seen and examined on the day of discharge, denies any new complaints, no chest pain, shortness of breath, palpitations. DISCHARGE MEDICATIONS: Aspirin 325 mg daily, carvedilol 6.25 mg twice a day, Levemir 20 units daily, lisinopril 20 mg daily, Tylenol as needed, amlodipine 5 mg daily. INPATIENT CONSULTANTS: Neurology, Dr. Zambrano. BRIEF HOSPITAL COURSE: The patient is a 61-year-old female with uncontrolled diabetes mellitus type 2, currently not taking any medications, presented to the hospital with stroke-like symptoms. Her wo rkup was consistent with acute CVA. MRI of the brain showed acute or subacute lacunar infarctions in the brainstem, more specifically at the upper [place]. It also showed moderate chronic ischemic white matter changes. MRA of the brain showed multifocal stenosis of the bilateral posterior cerebral lefty vidhya and superior cerebellar arteries. Carotid Doppler was negative for hemodynamically significant stenosis. Echocardiogram showed ejection fraction 55-60% with diastolic dysfunction. Her hemoglobin A1c was 15.2. Fasting lipid profile showed cholesterol of 208 with LDL 138, HDL 50, triglyceride 99 . She will be discharged to swing bed for further rehabilitation. Vital signs on the day of dischar showed temperature 98.6, pulse rate of 79, respiration of 18, blood pressure of 143/80. Plan of care was discussed with the patient in detail. She stated understanding. FINAL DIAGNOSES: 1. Acute cerebrovascular accident. 2. Diabetes mellitus type 2, uncontrolled with hemoglobin A1c 15.2. 3. Hypertension. 4. Hypokalemia. 5. Dyslipidemia. 6. Chronic kidney disease stage 2. 7. Medication noncompliance. 8. Double vision secondary to acute cerebrovascular accident. Plan of care was discussed with the patient and the family, they stated understanding. Total time coordinating the discharge of this patient was 36 minutes.
== END 2017-08-27 18:15 | DRG 66 ==
LOC: ERS 16:13 → 2SE 17:55
PROVIDERS: ADMIT Internal Medicine; ATTEND Internal Medicine
DX: I63.9 Cerebral infarction, unspecified (principal); E11.65 Type 2 diabetes mellitus with hyperglycemia; Z91.14 Patient's other noncompliance with medication regimen; E87.6 Hypokalemia; E78.5 Hyperlipidemia, unspecified; Z88.1 Allergy status to other antibiotic agents; N18.2 Chronic kidney disease, stage 2 (mild); I12.9 Hypertensive chronic kidney disease with stage 1 through stage 4 chronic kidney disease, or unspecified chronic kidney disease; H54.7 Unspecified visual loss; Z79.899 Other long term (current) drug therapy
CPT/HCPCS: 36415; 36416; 70544; 70551; 80048; 80061; 80069; 83036; 83735; 84132; 84443; 85014; 85018; 85025; 85049; 90471; 90670; 93306; 93880; 96374; G0009; G8978-GP-CK; G8979-GP-CI; G8987-GO-CK; G8988-GO-CH; G9162-GN-CJ; G9163-GN-CJ; J0360; J1650; J1815; J2405; Q0162